=== PATIENT | female | born 1950 | race Hispanic/Latino ===

== ENCOUNTER 2016-09-30 23:19 | Emergency (ER) | payer OTHER, MEDICARE ==
[2016-09-30 23:29] VITALS: RESP 16; O2SAT 99
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
[2016-09-30 23:57] LABS: BASO % 0.5 % (0.0-2.0); EOS # 0.1 K/uL (0.0-0.7); EOS % 0.8 % (0.0-4.0); HEMATOCRIT 37.7 % (34.0-47.0); LYMPH # 1.6 K/uL (1.0-4.3); LYMPH % 22.4 % (20.0-40.0); MEAN CELL VOLUME 82.7 fl (81.0-99.0); MEAN CORPUSCULAR HEMOGLOBIN 27.2 pg (27.0-31.0); MEAN CORPUSCULAR HGB CONC 32.9 g/dL (33.0-37.0); MEAN PLATELET VOLUME 7.6 fl (7.2-11.7); MONO # 0.5 K/uL (0.0-0.8); MONO % 7.2 % (0.0-10.0); NEUT # 4.9 K/uL (1.8-7.0); NEUT % 69.1 % (50.0-75.0); RED CELL DISTRIBUTION WIDTH 14.5 % (11.5-14.5); WHITE BLOOD COUNT 7.1 K/uL (4.8-10.8)
[2016-10-01 00:07] LABS: ALB/GLOB RATIO 1.4 (1.0-2.1); ALKALINE PHOSPHATASE 83 U/L (38-126); ALT/SGPT 42 U/L (9-52); AST/SGOT 29 U/L (14-36); BILIRUBIN,TOTAL 0.5 mg/dl (0.2-1.3); BLOOD UREA NITROGEN 16 mg/dl (7-17); CALCIUM 9.4 mg/dL (8.4-10.2); CARBON DIOXIDE 30 mmol/L (22-30); CHLORIDE 101 mmol/L (98-107); GFR AFRICAN-AMERICAN > 60; GLUCOSE,RANDOM 122 mg/dL (65-105); POTASSIUM 4.3 MMOL/L (3.6-5.0); SODIUM 139 mmol/l (132-148)
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
[2016-10-01 04:49] VITALS: BP 147/79; PULSE 87; TEMP 98.6
== END 2016-10-01 06:27 | disposition home or self-care (01) ==
LOC: H.ER 23:19
DX: S09.90XA Unspecified injury of head, initial encounter (principal); M54.9 Dorsalgia, unspecified; S16.1XXA Strain of muscle, fascia and tendon at neck level, initial encounter; V43.52XA Car driver injured in collision with other type car in traffic accident, initial encounter; Y92.410 Unspecified street and highway as the place of occurrence of the external cause

== ENCOUNTER 2017-04-30 21:18 | Emergency (ER) | payer MEDICARE, MEDICAID ==
[2017-04-30 21:33] VITALS: O2SAT 98
--- NOTE | 2017-04-30 22:26 | ED PDOC ---
HPI: Chest Pain Time Seen by Provider: 04/30/17 22:02 Chief Complaint (Nursing): Chest Pain Chief Complaint (Provider): Chest pain History Per: Patient History/Exam Limitations: no limitations Onset/Duration Of Symptoms: Mins (20) Additional Complaint(s): Patient is a 67 y/o female with a past medical history of breast CA and newly diagnosed hypertension presenting to the emergency department for left sided chest pain lasting for twenty minutes. The pain is non-radiating, non-exertional , and not associated with shortness of breath. Patient also notes chronic nasal congestion and sleep apnea. Denies any other complaints. Of note, when checking her blood pressure today, patient noted that her systolic blood pressure was near the 200s. She has also expressed anxiety about having lung cancer. PCP: [facility] Past Medical History Reviewed: Historical Data, Nursing Documentation, Vital Signs Vital Signs: Last Vital Signs Temp 96.8 F L 04/30/17 21:28 Pulse 86 04/30/17 22:56 Resp 18 04/30/17 22:56 BP 156/98 H 04/30/17 22:56 Pulse Ox 98 05/01/17 00:38 - Medical History PMH: HTN - Family History Family History: States: Unknown Family Hx - Social History Current smoker - smoking cessation education provided: No Ex-Smoker (has not smoked in the last 12 months): Yes Alcohol: None Drugs: Denies - Home Medications Home Medications: Ambulatory Orders Medication Instructions Recorded Phenazopyridine HCl [Pyridium] 100 mg PO Q12H #6 tab 10/11/14 Sulfamethoxazole/Trimethopri 1 tab PO BID #14 tab 10/11/14 [Bactrim Ds 800 mg-160 mg] Ibuprofen [Motrin] 600 mg PO Q6 PRN #15 tab 10/09/15 traMADol [Ultram] 50 mg PO TID PRN #15 tab 10/09/15 Cyclobenzaprine [Flexeril] 5 mg PO Q8 PRN #15 tab 10/01/16 Ibuprofen [Motrin Tab] 600 mg PO Q8 PRN #60 tab 10/01/16 - Allergies Allergies/Adverse Reactions: Allergies Allergy/AdvReac Type Severity Reaction Status Date / Time No Known Allergies Allergy Verified 09/30/16 23:22 Review of Systems ROS Statement: Except As Marked, All Systems Reviewed And Found Negative ENT: Positive for: Nose Congestion (chronic) Cardiovascular: Positive for: Chest Pain (left sided, non-radiating, non- exertional) Respiratory: Negative for: Shortness of Breath Physical Exam - Reviewed Nursing Documentation Reviewed: Yes Vital Signs Reviewed: Yes - Physical Exam Appears: Positive for: Well, Non-toxic, No Acute Distress Head Exam: Positive for: ATRAUMATIC, NORMAL INSPECTION, NORMOCEPHALIC Skin: Positive for: Normal Color, Warm, Dry Eye Exam: Positive for: Normal appearance Neck: Positive for: Normal Cardiovascular/Chest: Positive for: Regular Rate, Rhythm. Negative for: Murmur Respiratory: Positive for: Normal Breath Sounds. Negative for: Accessory Muscle Use, Respiratory Distress Extremity: Positive for: Normal ROM. Negative for: Pedal Edema Neurologic/Psych: Positive for: Alert, Oriented (x3) - Laboratory Results Result Diagrams: 04/30/17 22:40 04/30/17 22:40 - ECG O2 Sat by Pulse Oximetry: 98 (RA) Pulse Ox Interpretation: Normal Medical Decision Making Medical Decision Making: Time: 21:33 Initial impression: anxiety vs. hypertensive urgency vs. acute coronary syndrome Initial plan: EKG BMP Troponin CBC Partial Thromboplastin Prothrombin Time CXR Show Card Letterer Reevaluation Time: 00:35 Chest X-Ray FINDINGS: Lungs: Unremarkable. No consolidation. Pleural space: Unremarkable. No pneumothorax. Heart: Unremarkable. No cardiomegaly. Mediastinum: Unremarkable. 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 IMPRESSION: No acute cardiopulmonary disease. Time: 00:50 This patient is choosing to leave against medical advice. I have personally explained to the pt that choosing to do so may result in permanent bodily harm or . I have discussed at great length that without further evaluation and monitoring there may be unforeseen circumstances and/or deterioration causing permanent bodily harm or as a result of their choice. The pt verbalized these risks back to the physician in laymans terms. The pt is alert, oriented, and shows the mental capacity to make clear decisions regarding the pts health care at this time. The pt continues to wish to leave against medical advice. In light of the pts decision to leave AMA, follow-up has been arranged and the pt is aware of the importance of following up as instructed. The pt has been advised that they should return to the ED immediately if they change their mind at any time, or if their condition begins to change or worsen in any way. Scribe Attestation: Documented by Bhavna Zepeda and Augustine Palmer, acting as a scribe for Arya Rose MD. Provider Scribe Attestation: All medical record entries made by the Scribe were at my direction and personally dictated by me. I have reviewed the chart and agree that the record accurately reflects my personal performance of the history, physical exam, medical decision making, and the department course for this patient. I have also personally directed, reviewed, and agree with the discharge instructions and disposition. Disposition - Clinical Impression Clinical Impression: Chest pain - Patient ED Disposition Is Patient to be Admitted: No - Disposition [facility] Disposition: Against Medical Advice Disposition Time: 00:50 Condition: STABLE Instructions: Chest Pain (ED), Against Medical Advice (ED) Forms: [employer] (Slovak)
[2017-04-30 22:45] LABS: BASO # 0.1 K/uL (0.0-0.2); BASO % 1.2 % (0.0-2.0); EOS # 0.1 K/uL (0.0-0.7); LYMPH # 1.9 K/uL (1.0-4.3); LYMPH % 28.3 % (20.0-40.0); MEAN CELL VOLUME 82.9 fl (81.0-99.0); MEAN CORPUSCULAR HEMOGLOBIN 26.4 pg (27.0-31.0); MEAN CORPUSCULAR HGB CONC 31.8 g/dL (33.0-37.0); MEAN PLATELET VOLUME 7.6 fl (7.2-11.7); MONO # 0.6 K/uL (0.0-0.8); MONO % 8.2 % (0.0-10.0); NEUT # 4.2 K/uL (1.8-7.0); NEUT % 61.3 % (50.0-75.0); NRBC % 0.1 % (0.0-0.0); RBC 4.57 Mil/uL (3.80-5.20); RED CELL DISTRIBUTION WIDTH 14.4 % (11.5-14.5); WHITE BLOOD COUNT 6.8 K/uL (4.8-10.8)
[2017-04-30 22:55] LABS: PARTIAL THROMBOPLASTIN TIME 28.9 Seconds (25.6-37.1); PROTHROMBIN TIME 10.8 Seconds (9.8-13.1)
[2017-04-30 22:57] VITALS: RESP 18
[2017-04-30 22:59] LABS: BLOOD UREA NITROGEN 15 mg/dl (7-17); CALCIUM 9.8 mg/dL (8.4-10.2); GFR AFRICAN-AMERICAN > 60; GFR NON-AFRICAN AMERICAN > 60
--- NOTE | 2017-05-01 00:35 | RAD ---
EXAM: XR Chest, 2 Views CLINICAL HISTORY: 67 years old, female; Condition or disease; Other: Breast ca; Prior surgery; Surgery date: 6+ months; Additional info: Cp TECHNIQUE: Frontal and lateral views of the chest are. COMPARISON: CR - CHEST PA AND LATERAL ROUTINE 2008-08-08 19:43 FINDINGS: Lungs: Unremarkable. No consolidation. Pleural space: Unremarkable. No pneumothorax. Heart: Unremarkable. No cardiomegaly. Mediastinum: Unremarkable. 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 IMPRESSION: No acute cardiopulmonary disease.
[2017-05-01 01:06] VITALS: BP 151/91; PULSE 81; TEMP 98.3
--- NOTE | 2017-05-02 11:21 | CARD ---
APPROVED REPORT EKG Measurement Heart [id number] <Conclusion> Normal sinus rhythm Normal ECG
== END 2017-05-01 00:54 | disposition left against medical advice (07) ==
LOC: H.ER 21:18
DX: R07.89 Other chest pain (principal); C34.90 Malignant neoplasm of unspecified part of unspecified bronchus or lung; F41.9 Anxiety disorder, unspecified; I10 Essential (primary) hypertension; Z85.3 Personal history of malignant neoplasm of breast